=== PATIENT | female | born 1985 | race African-American/Black ===

== ENCOUNTER 2023-01-23 13:00 | Emergency (ER) | payer MEDICAID, OTHER ==
[~2023-01-23] VITALS: Ht 162.6 cm; Wt 89.0 kg
[~2023-01-23 13:00] MED LIST: ALBU18HF2 IH; AMLO2.5T45 PO; BECL8.7A6 IH; ESCI-7 PO; FLEC100T2 PO; FLUT1DIS IH; METO-539 PO
[2023-01-23 13:32] VITALS: BP 97/49; PULSE 64; RESP 18; TEMP 99.1
[2023-01-23] MEDS ORDERED: IBUPROFEN 800MG TABLET PO ONE (14:30)
[2023-01-23] MEDS ORDERED: ACETAMINOPHEN 325MG TABLET PO ONE (14:30)
[2023-01-23] MEDS ORDERED: IBUPROFEN 400MG TABLET PO NR (14:45)
[2023-01-23] MEDS ORDERED: IBUP-1523 MT (14:49)
[2023-01-23] MEDS ORDERED: P50 MT (14:49)
[2023-01-23] MEDS ORDERED: TOPUD MT (14:49)
== END 2023-01-23 14:59 | disposition home or self-care (01) ==
LOC: ER 13:00
DX: M25.562 Pain in left knee (principal); I48.91 Unspecified atrial fibrillation; D64.9 Anemia, unspecified; J45.909 Unspecified asthma, uncomplicated; E78.00 Pure hypercholesterolemia, unspecified; I10 Essential (primary) hypertension; Z98.890 Other specified postprocedural states; Z79.899 Other long term (current) drug therapy
CPT/HCPCS: 99281; 99283

== ENCOUNTER 2025-07-21 11:11 | Emergency (ER) | payer MEDICAID ==
[~2025-07-21] VITALS: Ht 162.6 cm; Wt 87.0 kg
[~2025-07-21 11:11] MED LIST changes: +IBUP-1523 MT; +P50 MT; +TOPUD MT
[2025-07-21 12:16] LABS: BASOPHILS % 0.3 % (0.0-2.0); EOSINOPHILS % 0.0 % (0.0-5.0); HEMATOCRIT. 28.0 % (36.0-48.0); HEMOGLOBIN. 8.7 g/dL (12.0-16.0); LYMPHOCYTES % 25.2 % (20.0-50.0); MEAN PLATELET VOLUME 7.6 fl (7.4-10.4); MONOCYTES % 7.1 % (2.0-8.0); NEUTROPHILS % 67.4 % (40.0-76.0); PLATELET 444 x1000/uL (130-400); RED BLOOD CELL COUNT 3.85 mill/uL (4.2-5.4); RED CELL DISTRIBUTION WIDTH 19.3 % (11.6-14.6)
[2025-07-21 12:31] LABS: CREATININE 0.7 mg/dL (0.6-1.0); UREA NITROGEN BLOOD 5 mg/dL (9-23)
[2025-07-21] MEDS: PREDNISONE 20MG TABLET PO ONE (13:26)
[2025-07-21 13:41] VITALS: PULSE 78; RESP 18; O2SAT 98
[2025-07-21] MEDS: IPRATROPIUM/ALBUTEROL 0.5-3(2.5)MG/3ML NEB HHN ONE (13:41)
[2025-07-21] MEDS ORDERED: FLUT12AE3 INH (15:24)
[2025-07-21] MEDS ORDERED: ALBU90AE INH (15:24)
[2025-07-21 15:29] VITALS: BP 168/85; PULSE 71; RESP 15; TEMP 36.7; O2SAT 99
== END 2025-07-21 15:30 | disposition home or self-care (01) ==
LOC: ER 11:51
DX: J45.901 Unspecified asthma with (acute) exacerbation (principal); E78.00 Pure hypercholesterolemia, unspecified; F32.A Depression, unspecified; I48.91 Unspecified atrial fibrillation; I10 Essential (primary) hypertension; Z79.51 Long term (current) use of inhaled steroids; Z79.899 Other long term (current) drug therapy
CPT/HCPCS: 80048; 85025; 36415; 71045; 94640; 99284; J7512; Z7610 ×3; 94070